=== PATIENT | female | born 1995 | race Two or more races ===

== ENCOUNTER → 2022-01-20 | Outpatient (CLI) | payer MEDICAID ==
[2022-01-20 07:09] LABS: Hemoglobin 9.2 g/dL (12.2-16.2); Mean Corpuscular Hemoglobin 28.4 pg (28.0-32.0); Mean Corpuscular Hgb Conc. 32.8 g/dL (32.0-36.0); Mean Corpuscular Volume 86.5 fL (80.0-100.0); Red Blood Cells 3.24 10^6/uL (4.0-5.20); Red Cell Distribution Width 13.4 % (11.8-14.3); White Blood Cell 8.9 10^3/uL (4.4-10.8)
[2022-01-20 07:28] LABS: Basophils % (manual) 0 (0.0-2.0); Blast Cells 0; Metamyelocytes % 0; Promyelocytes % 0; Reactive Lymphocytes 0
[2022-01-20 07:51] LABS: Band Neutrophils % (manual) 2; Eosinophils % (manual) 4 (0-7); Lymphocytes % (manual) 17 (10.0-50.0); Monocytes % (manual) 4 (0-12); Myelocytes % 1
[2022-01-21 06:06] LABS: RPR Non Reactive (Non Reactive)
== END | disposition home or self-care (01) ==
LOC: LAB 06:40
PROVIDERS: ATTEND Obstetrics & Gynecology Obstetrics
DX: Z34.00 Encounter for supervision of normal first pregnancy, unspecified trimester (principal); O99.810 Abnormal glucose complicating pregnancy
CPT/HCPCS: 36415; 82951; 85007; 85027; 86592

== ENCOUNTER 2022-03-02 07:17 | Observation (INO) | payer MEDICAID ==
[2022-03-09] MEDS ORDERED: METF-370 PO (11:36)
== END 2022-03-09 12:00 | disposition home or self-care (01) ==
LOC: LDRP 03-09 10:24 → UNDOADMOB 03-09 10:26 → UNDODISOB 03-09 12:00
PROVIDERS: ADMIT Obstetrics & Gynecology; ATTEND Obstetrics & Gynecology
DX: O24.419 Gestational diabetes mellitus in pregnancy, unspecified control (principal); Z3A.32 32 weeks gestation of pregnancy
CPT/HCPCS: 59025; 76818; 81002; 82948; 82962; 94760; G0378

== ENCOUNTER 2022-03-12 08:50 | Observation (INO) | payer MEDICAID ==
[~2022-03-12 08:50] MED LIST: METF-370 PO
== END 2022-03-12 11:22 | disposition home or self-care (01) ==
LOC: UNDOADMOB 08:50 → LDRP 08:50 → UNDODISOB 11:22
PROVIDERS: ADMIT Obstetrics & Gynecology; ATTEND Obstetrics & Gynecology
DX: O24.415 Gestational diabetes mellitus in pregnancy, controlled by oral hypoglycemic drugs (principal); Z3A.33 33 weeks gestation of pregnancy
CPT/HCPCS: 59025; 76818; 81002; 82948; 82962; 94760; G0378

== ENCOUNTER 2022-03-17 08:00 | Observation (INO) | payer MEDICAID ==
[2022-03-17] MEDS ORDERED: PREN-96 PO (09:54)
== END 2022-03-17 10:27 | disposition home or self-care (01) ==
LOC: LDRP 08:00 → UNDOADMOB 08:00 → LDRP 08:45
PROVIDERS: ADMIT Obstetrics & Gynecology; ATTEND Obstetrics & Gynecology
DX: O24.419 Gestational diabetes mellitus in pregnancy, unspecified control (principal); Z3A.33 33 weeks gestation of pregnancy
CPT/HCPCS: 59025; 76818; 81002; 82948; 82962; G0378

== ENCOUNTER 2022-03-18 07:52 | Observation (INO) | payer MEDICAID ==
[~2022-03-18 07:52] MED LIST changes: +PREN-96 PO
== END 2022-03-20 11:22 | disposition home or self-care (01) ==
LOC: LDRP 03-20 10:07 → UNDOADMOB 03-20 10:07 → LDRP 03-20 10:12
PROVIDERS: ADMIT Obstetrics & Gynecology; ATTEND Obstetrics & Gynecology
DX: O24.419 Gestational diabetes mellitus in pregnancy, unspecified control (principal); Z3A.34 34 weeks gestation of pregnancy
CPT/HCPCS: 59025; 76818; 81002; 82948; 82962; G0378

== ENCOUNTER 2022-03-22 03:02 | Observation (INO) | payer MEDICAID ==
[~2022-03-22] VITALS: Ht 149.9 cm; Wt 55.8 kg
== END 2022-03-22 06:02 | disposition home or self-care (01) ==
LOC: LDRP 03:02
PROVIDERS: ADMIT Obstetrics & Gynecology; ATTEND Obstetrics & Gynecology
DX: O36.8130 Decreased fetal movements, third trimester, not applicable or unspecified (principal); O24.419 Gestational diabetes mellitus in pregnancy, unspecified control; Z3A.34 34 weeks gestation of pregnancy
CPT/HCPCS: 59025; 76818; 81002; 82948; 82962; 94760; G0378

== ENCOUNTER 2022-03-24 09:08 | Observation (INO) | payer MEDICAID | END 2022-03-24 10:30 | disposition home or self-care (01) | LOC: LDRP 09:08 → UNDOADMOB 09:08 → LDRP 09:38 → UNDODISOB 10:30 | PROVIDERS: ADMIT Obstetrics & Gynecology; ATTEND Obstetrics & Gynecology | DX: O24.419 Gestational diabetes mellitus in pregnancy, unspecified control (principal); Z3A.34 34 weeks gestation of pregnancy | CPT/HCPCS: 59025; 76818; 81002; 82948; 82962; 94760; G0378 ==

== ENCOUNTER 2022-03-24 09:48 | Observation (INO) | payer MEDICAID ==
[2022-03-31] MEDS ORDERED: IRON150T2 PO (10:50)
== END 2022-03-31 11:20 | disposition home or self-care (01) ==
LOC: UNDOADMOB 03-31 09:50 → LDRP 03-31 09:50 → UNDODISOB 03-31 11:20
PROVIDERS: ADMIT Obstetrics & Gynecology; ATTEND Obstetrics & Gynecology
DX: O24.419 Gestational diabetes mellitus in pregnancy, unspecified control (principal); O12.03 Gestational edema, third trimester; Z3A.35 35 weeks gestation of pregnancy
CPT/HCPCS: 59025; 76818; 81002; 82948; 82962; 94760; G0378

== ENCOUNTER 2022-03-26 08:58 | Observation (INO) | payer MEDICAID ==
[~2022-03-26] VITALS: Ht 152.4 cm; Wt 55.8 kg
== END 2022-03-26 15:32 | disposition home or self-care (01) ==
LOC: LDRP 14:11 → UNDOADMOB 14:12 → LDRP 14:12 → UNDODISOB 15:32
PROVIDERS: ADMIT Obstetrics & Gynecology; ATTEND Obstetrics & Gynecology
DX: O24.419 Gestational diabetes mellitus in pregnancy, unspecified control (principal); Z3A.35 35 weeks gestation of pregnancy
CPT/HCPCS: 59025; 76818; 81002; 82948; 82962; 94760; G0378

== ENCOUNTER 2022-04-03 11:44 | Observation (INO) | payer MEDICAID ==
[~2022-04-03 11:44] MED LIST changes: +IRON150T2 PO
== END 2022-04-03 12:49 | disposition home or self-care (01) ==
LOC: LDRP 11:44 → UNDOADMOB 11:44 → LDRP 11:47 → UNDODISOB 12:49
PROVIDERS: ADMIT Obstetrics & Gynecology; ATTEND Obstetrics & Gynecology
DX: O24.419 Gestational diabetes mellitus in pregnancy, unspecified control (principal); Z3A.36 36 weeks gestation of pregnancy
CPT/HCPCS: 59025; 81002; 82948; 82962; 94760; G0378

== ENCOUNTER 2022-04-07 08:10 | Observation (INO) | payer MEDICAID ==
[~2022-04-07] VITALS: Ht 149.9 cm; Wt 63.0 kg
== END 2022-04-07 12:13 | disposition home or self-care (01) ==
LOC: UNDOADMOB 10:40 → LDRP 10:40
PROVIDERS: ADMIT Obstetrics & Gynecology; ATTEND Obstetrics & Gynecology
DX: O24.419 Gestational diabetes mellitus in pregnancy, unspecified control (principal); Z3A.36 36 weeks gestation of pregnancy
CPT/HCPCS: 59025; 76818; 81002; 82948; 82962; 94760; G0378

== ENCOUNTER 2022-04-10 08:02 | Observation (INO) | payer MEDICAID | END 2022-04-10 11:22 | disposition home or self-care (01) | LOC: UNDOADMOB 10:00 → LDRP 10:00 → UNDODISOB 11:22 | PROVIDERS: ADMIT Obstetrics & Gynecology; ATTEND Obstetrics & Gynecology | DX: O24.419 Gestational diabetes mellitus in pregnancy, unspecified control (principal); O36.8930 Maternal care for other specified fetal problems, third trimester, not applicable or unspecified; Z3A.37 37 weeks gestation of pregnancy | CPT/HCPCS: 59025; 76818; 81002; 82948; 82962; 94760; G0378 ==

== ENCOUNTER 2022-04-13 07:24 | Observation (INO) | payer MEDICAID | END 2022-04-13 13:11 | disposition home or self-care (01) | LOC: LDRP 11:22 → UNDOADMOB 11:22 → LDRP 13:02 → UNDODISOB 13:11 | PROVIDERS: ADMIT Obstetrics & Gynecology Obstetrics; ATTEND Obstetrics & Gynecology Obstetrics | DX: O24.419 Gestational diabetes mellitus in pregnancy, unspecified control (principal); Z3A.38 38 weeks gestation of pregnancy | CPT/HCPCS: 59025; 81002; 82948; 82962; G0378 ==

== ENCOUNTER 2022-04-17 11:13 | Observation (INO) | payer MEDICAID | END 2022-04-17 13:45 | disposition home or self-care (01) | LOC: LDRP 11:13 → UNDOADMOB 11:13 → LDRP 11:49 → UNDODISOB 13:45 | PROVIDERS: ADMIT Obstetrics & Gynecology; ATTEND Obstetrics & Gynecology | DX: O24.419 Gestational diabetes mellitus in pregnancy, unspecified control (principal); Z3A.38 38 weeks gestation of pregnancy | CPT/HCPCS: 59025; 76818; 81002; 82948; 82962; 94760; G0378 ==

== ENCOUNTER 2022-04-21 07:34 | Observation (INO) | payer MEDICAID | END 2022-04-24 11:26 | disposition home or self-care (01) | LOC: UNDOADMOB 04-24 09:27 → LDRP 04-24 09:27 | PROVIDERS: ADMIT Obstetrics & Gynecology; ATTEND Obstetrics & Gynecology | DX: O24.419 Gestational diabetes mellitus in pregnancy, unspecified control (principal); Z3A.39 39 weeks gestation of pregnancy | CPT/HCPCS: 59025; 76818; 81002; 82948; 82962; 94760; G0378 ==

== ENCOUNTER 2022-04-26 07:31 | Inpatient (IN) | payer MEDICAID ==
[~2022-04-26] VITALS: Ht 149.9 cm; Wt 63.0 kg
[2022-04-26] MEDS ORDERED: PROMETHAZINE HCL 25 MG/ML 1ML IV PRN (07:45)
[2022-04-26] MEDS ORDERED: WITCH HAZEL-GLYCERIN PAD TOP PRN (07:45)
[2022-04-26] MEDS ORDERED: BUTORPHANOL TARTRATE 2 MG/1 ML VIAL IV PRN ×2 (07:45)
[2022-04-26] MEDS ORDERED: LIDOCAINE 2%HCL (LOCAL ANESTH.) INJ 10ml MDV IJ PRN (07:45)
[2022-04-26] MEDS ORDERED: LACT. RINGERS/OXYTOCIN 20UNITS 500 ML IV ONE ×2 (07:45→08:15)
[2022-04-26] MEDS ORDERED: DERMOPLAST 60ML BOTTLE TOP PRN (07:45)
[2022-04-26] MEDS ORDERED: PHISODERM TOP SOLN 240ML BTL TOP PRN (07:45)
[2022-04-26 08:16] LABS: Urine Bacteria FEW /hpf (None Seen); Urine Blood Negative /uL (Negative); Urine Mucus FEW (None Seen); Urine Specific Gravity 1.018 (1.001-1.035); Urine WBC 6 /hpf (0 - 5)
[2022-04-26 08:30] LABS: Alcohol, Urine < 3.0 mg/dL (0-10); Amphetamine Screen, Urine NEGATIVE (NEGATIVE); Barbiturate Scree,Urine NEGATIVE (NEGATIVE); Benzodiazephine Screen, Urine NEGATIVE (NEGATIVE); Cannabinoid Screen, Urine NEGATIVE (NEGATIVE); Cocaine Screen, Urine NEGATIVE (NEGATIVE); Opiate Scree,Urine NEGATIVE (NEGATIVE); Phencyclidine Screen, Urine NEGATIVE (NEGATIVE)
[2022-04-26 08:54] LABS: Hematocrit 28.8 % (36.0-46.0); Monocytes # (auto) 0.6 10 ^3/uL (0-1.3); Nucleated Red Blood Cells % 0.6 %; White Blood Cell 6.6 10^3/uL (4.4-10.8)
[2022-04-26 08:55] LABS: Basophils # (auto) 0.1 10 ^3/uL (0-0.2); Basophils % (auto) 0.8 % (0.0-2.0); Eosinophils # (auto) 0 10 ^3/uL (0-0.8); Eosinophils % (auto) 0.7 % (0.0-7.0); Hemoglobin 8.9 g/dL (12.2-16.2); Lymphocytes # (auto) 1.4 10 ^3/uL (0.4-5.4); Lymphocytes % (auto) 21.3 % (10.0-50.0); Mean Corpuscular Hemoglobin 22.6 pg (28.0-32.0); Mean Corpuscular Hgb Conc. 30.9 g/dL (32.0-36.0); Monocytes % (auto) 9.6 % (0.0-12.0); Neutrophils # (auto) 4.5 10 ^3/uL (1.6-8.6); Neutrophils % (auto) 67.6 % (37.0-80.0); Red Blood Cells 3.94 10^6/uL (4.0-5.20); Red Cell Distribution Width 17.8 % (11.8-14.3)
[2022-04-26] MEDS: LACTATED RINGER'S 1,000 ML IV SCH ×3 (09:03→20:59)
[2022-04-26 09:11] LABS: INR 0.88 (0.9-1.15); Partial Thromboplastin Time 23.6 sec (24.6-33.4)
[2022-04-26 09:12] LABS: Albumin 2.4 g/dL (3.4-5.0); Calcium 8.4 mg/dL (8.5-10.1); Potassium 3.6 mmol/L (3.5-5.1)
[2022-04-26 09:15] LABS: BUN/Creatinine Ratio 16.1; Bilirubin, Total 0.2 mg/dL (0.2-1.0); Total Protein 6.2 g/dL (6.4-8.2)
[2022-04-26] MEDS: ACCU-CHEK COMFORT CURVE STRIP VI SCH ×2 (09:38→21:50)
[2022-04-26] MEDS: miSOPROStol 50 MCG per PRE-CUT 1/2 TAB PO PRN ×4 (09:56→21:54)
[2022-04-27] MEDS: LACTATED RINGER'S 1,000 ML IV SCH ×4 (00:46→23:35)
[2022-04-27] MEDS: miSOPROStol 50 MCG per PRE-CUT 1/2 TAB PO PRN (04:11)
[2022-04-27] MEDS ORDERED: TERBUTALINE SULFATE 1 MG/ML 1ML VIAL SC PRN (04:45)
[2022-04-27] MEDS ORDERED: LACT. RINGERS/OXYTOCIN 20UNITS 1,000 ML IV SCH (10:30)
[2022-04-27] MEDS: ACCU-CHEK COMFORT CURVE STRIP VI SCH (10:48)
[2022-04-27] MEDS ORDERED: ONDANSETRON ODT 4 MG TAB PO PRN (19:15)
[2022-04-27] MEDS ORDERED: DOCUSATE SOD 100 MG CAP PO PRN (19:15)
[2022-04-27] MEDS ORDERED: ACETAMINOPHEN 325 MG TAB PO PRN (19:15)
[2022-04-27] MEDS ORDERED: ROPIVACAINE HCL 200 ML EPI SCH (21:15)
[2022-04-27] MEDS ORDERED: LIDOCAINE HCL 2 %PF INJ 10ML AMP IJ ONE (21:15)
[2022-04-27] MEDS ORDERED: NALOXONE HCL 0.4 MG/ML VIAL IV ONE (21:15)
[2022-04-27] MEDS ORDERED: ePHEDrine SULFATE 50 MG/ML AMP IV ONE (21:15)
[2022-04-27] MEDS ORDERED: fentaNYL CITRATE 100 MCG/2 ML VL IV ONE (21:15)
[2022-04-27] MEDS ORDERED: LACTATED RINGER'S 500 ML IV ONE (21:15)
[2022-04-28] VITALS (19 sets, daily range): BP systolic 91–142; BP diastolic 48–72
[2022-04-28] MEDS ORDERED: IBUPROFEN 800 MG TAB PO SCH
[2022-04-28] MEDS ORDERED: ceFAZolin 1GM/50ML 50 ML IV ONE (01:00)
[2022-04-28] MEDS ORDERED: AZITHROMYCIN 500MG/ 250ML 250 ML IV ONE (01:00)
[2022-04-28] MEDS ORDERED: fentaNYL CITRATE 100 MCG/2 ML VL ONE (02:11)
[2022-04-28] MEDS ORDERED: MORPHINE SULF PF 5 MG/10 ML VIAL ONE (02:11)
[2022-04-28] MEDS ORDERED: MIDAZOLAM HCL 2MG/2ML 2ml VIAL (1mg/ml) ONE (02:11)
[2022-04-28] MEDS ORDERED: TETRACAINE 1% INJ 2 ML VIAL IJ ONE (02:12)
[2022-04-28] MEDS ORDERED: oxyTOCIN 10 UNIT/ML 10ML VIAL ONE (02:21)
[2022-04-28] MEDS ORDERED: ePHEDrine SULFATE 50 MG/ML AMP IV PRN ×2 (03:15→04:00)
[2022-04-28] MEDS ORDERED: MORPHINE SULFATE 4 MG/ML SYR/VIAL IV PRN (03:15)
[2022-04-28] MEDS ORDERED: diphenhdrAMINE HCL 50 MG/1 ML VL IV PRN (03:15)
[2022-04-28] MEDS ORDERED: KETOROLAC TROMETH 30 MG/ML 1ML VIAL IV PRN ×2 (03:15→04:00)
[2022-04-28] MEDS ORDERED: DexAMETHasone SOD PHOS 10MG/1ML VIAL INJ IV PRN (03:15)
[2022-04-28] MEDS ORDERED: HYDROmorphone HCL 2 MG/ML VL/or syr IV PRN ×2 (03:15)
[2022-04-28] MEDS ORDERED: MIDAZOLAM HCL 2MG/2ML 2ml VIAL (1mg/ml) IV PRN (03:15)
[2022-04-28] MEDS ORDERED: ONDANSETRON HCL 4 MG/2 ML VIAL IV PRN ×3 (03:15→04:00)
[2022-04-28] MEDS ORDERED: LABETALOL HCL 5 MG/ML 4ML SYRINGE IV PRN (03:15)
[2022-04-28] MEDS ORDERED: NALBUPHINE HCL 10 MG/1ml INJECTION SUBCUT ONE (03:15)
[2022-04-28] MEDS ORDERED: NALOXONE HCL 0.4 MG/ML VIAL IV PRN (03:15)
[2022-04-28] MEDS ORDERED: OXYTOCIN 10UNIT/ML 1ML VIAL ONE (03:55)
[2022-04-28] MEDS ORDERED: GUM (CHEWING) 1 GUM CHEW CHEW ONE (04:00)
[2022-04-28] MEDS ORDERED: SIMETHICONE 80 MG CHEWABLE TABLET PO PRN (04:00)
[2022-04-28] MEDS ORDERED: DOCU100C10 PO (05:51)
[2022-04-28] MEDS ORDERED: HYDR-4902 PO (05:51)
[2022-04-28] MEDS ORDERED: IBU600T PO (05:51)
[2022-04-28 07:06] LABS: RPR Non Reactive (Non Reactive)
[2022-04-28] MEDS: DOCUSATE SOD 100 MG CAP PO SCH (22:16)
[2022-04-29] VITALS (9 sets, daily range): BP systolic 96–117; BP diastolic 66–79
[2022-04-29] MEDS ORDERED: ACETAMINOPHEN 325 MG TAB PO PRN (01:00)
[2022-04-29 02:36] LABS: Basophils # (auto) 0 10 ^3/uL (0-0.2); Eosinophils # (auto) 0 10 ^3/uL (0-0.8); Lymphocytes # (auto) 1.2 10 ^3/uL (0.4-5.4); Mean Corpuscular Volume 72.7 fL (80.0-100.0); Neutrophils # (auto) 14.5 10 ^3/uL (1.6-8.6); Nucleated Red Blood Cells % 0.3 %
[2022-04-29 02:38] LABS: Basophils % (auto) 0.2 % (0.0-2.0); Hematocrit 25.4 % (36.0-46.0); Hemoglobin 8.1 g/dL (12.2-16.2); Lymphocytes % (auto) 7.1 % (10.0-50.0); Mean Corpuscular Hemoglobin 23.1 pg (28.0-32.0); Mean Corpuscular Hgb Conc. 31.8 g/dL (32.0-36.0); Monocytes % (auto) 6.3 % (0.0-12.0); Neutrophils % (auto) 86.4 % (37.0-80.0); Red Blood Cells 3.49 10^6/uL (4.0-5.20); Red Cell Distribution Width 18.1 % (11.8-14.3); White Blood Cell 16.7 10^3/uL (4.4-10.8)
[2022-04-29] MEDS ORDERED: HYDROcodone-ACET 5/325MG TAB PO PRN (06:00)
[2022-04-29] MEDS: IBUPROFEN 600 MG TAB PO SCH ×3 (06:01→18:00)
[2022-04-29 07:06] LABS: Eosinophils # (auto) 0 10 ^3/uL (0-0.8); Lymphocytes # (auto) 1.6 10 ^3/uL (0.4-5.4); Red Blood Cells 3.64 10^6/uL (4.0-5.20)
[2022-04-29 07:08] LABS: Basophils # (auto) 0.1 10 ^3/uL (0-0.2); Basophils % (auto) 0.5 % (0.0-2.0); Hematocrit 26.3 % (36.0-46.0); Hemoglobin 8.3 g/dL (12.2-16.2); Lymphocytes % (auto) 9.4 % (10.0-50.0); Mean Corpuscular Hemoglobin 22.6 pg (28.0-32.0); Mean Corpuscular Hgb Conc. 31.4 g/dL (32.0-36.0); Mean Corpuscular Volume 72.2 fL (80.0-100.0); Monocytes # (auto) 1.2 10 ^3/uL (0-1.3); Neutrophils % (auto) 83.1 % (37.0-80.0); Nucleated Red Blood Cells % 0.2 %; Red Cell Distribution Width 18.4 % (11.8-14.3); White Blood Cell 16.9 10^3/uL (4.4-10.8)
[2022-04-29] MEDS: DOCUSATE SOD 100 MG CAP PO SCH (22:29)
[2022-04-30] MEDS: IBUPROFEN 600 MG TAB PO SCH ×2 (03:12→06:00)
[2022-04-30 03:22] VITALS: BP 129/78
[2022-04-30 07:10] VITALS: BP 107/69
[2022-04-30 10:55] VITALS: BP 119/77
== END 2022-04-30 13:50 | disposition home or self-care (01) | DRG 540 ==
LOC: LDRP 07:31
PROVIDERS: ADMIT Obstetrics & Gynecology; ATTEND Obstetrics & Gynecology
PROC: 10D00Z1 Extraction of Products of Conception, Low, Open Approach (ICD-10-PCS; principal; 2022-04-28 02:24)
DX: O24.429 Gestational diabetes mellitus in childbirth, unspecified control (principal); O75.81 Maternal exhaustion complicating labor and delivery; Z37.0 Single live birth; Z20.822 Contact with and (suspected) exposure to COVID-19; Z3A.39 39 weeks gestation of pregnancy
CPT/HCPCS: 36415; 59025; 59200; 80053; 80307; 81001; 81002; 82948; 82962; 85025; 85610; 85730; 86592; 86850; 86900; 86901; 86920; 94760; 94762; 96360; 96361; 96365; 96366; 96374; G0378; J0690; J2250; J2590